=== PATIENT | male | born 1995 | race American Indian/Alaskan Native ===

== ENCOUNTER 2020-10-17 17:12 | Emergency (ER) | payer MEDICAID, OTHER, SELFPAY ==
--- NOTE | 2020-10-17 17:25 | PC.NURSE ---
Unable to locate pt inlobby
[2020-10-17 17:35] VITALS: BP 167/79; PULSE 109; RESP 14; TEMP 35.9; O2SAT 99; BMI 27.6
== END 2020-10-17 20:25 | disposition left against medical advice (07) ==
PROVIDERS: Emergency Provider Emergency Medicine; Family Provider Physician Assistant; PCP Physician Assistant
CPT/HCPCS: 99281